=== PATIENT | female | born 1990 | race Caucasian/White ===

== ENCOUNTER 2020-08-20 07:58 | Inpatient (IN) | payer SELFPAY ==
[2020-08-20] MEDS ORDERED: EPINEPHrine VIAL 5 MG in IV NORMAL SALINE 250ML 250 ML IV ONE (08:30)
[2020-08-20] MEDS ORDERED: IV NORMAL SALINE 1000ML BAG 1,000 ML IV ONE ×3 (08:30→11:00)
[2020-08-20] MEDS ORDERED: SODIUM BICARB ADULT 8.4% 50 MEQ/50 ML DISP.SYRIN. IV ONE ×2 (08:45→10:45)
[2020-08-20] MEDS ORDERED: CALCIUM CHLORIDE 1,000 MG/10 ML DISP.SYRIN IVP ONE (08:45)
[2020-08-20] MEDS ORDERED: ATROPINE 0.5 MG/5 ML DISP.SYRINGE. IV ONE (08:45)
[2020-08-20] MEDS ORDERED: EPINEPHrine SYRINGE 1 MG/10 ML SYRINGE IV ONE (08:45)
[2020-08-20 08:50] LABS: PO2 ABG 123 mmHg (85-108); SAT O2 ABG 87 % (92-99)
[2020-08-20] MEDS ORDERED: NOREPINEPHRINE VIAL 8 MG in IV DEXTROSE 5% 250 ML IV ONE (09:00)
[2020-08-20] MEDS ORDERED: AMIODARONE 150 MG in IV DEXTROSE 5% 100ML 100 ML IV ONE (09:00)
[2020-08-20 09:08] LABS: FIO2 ABG 100 VENT
--- NOTE | 2020-08-20 09:12 | RAD ---
AP chest. HISTORY: Cardiopulmonary arrest, intubated AP view was taken of the chest. Endotracheal tube is in good position. NG tube extends into the stoma ch. There is no pneumothorax or pleural effusion. Heart is normal in size. Mediastinum is not widened . There are no acute infiltrates. IMPRESSION: 1. Endotracheal tube appears in good position. 2. NG tube in the stomach. 3. No acute infiltrates. Electronically signed by: Dakota Marroquin MD (08/20/2020 8:52 AM) [facility]
[2020-08-20] MEDS ORDERED: AMIODARONE 150 MG/3 ML VIAL IVP ONE (09:15)
--- NOTE | 2020-08-20 09:15 | PHYS DOC ---
Past Medical History Past Medical History Unable to obtain secondary to cardiopulmonary arrest Past Surgical History Unable to obtain secondary to cardiopulmonary arrest Additional Information: ETOH use- per EMS Drug Use: Cocaine (?- per EMS) Social History Unable to obtain secondary to cardiopulmonary arrest General Adult EDM: Chief Complaint: CPR/FULL ARREST HPI: HPI: Patient is a 29 year old female presents via EMS and cardiopulmonary arrest. Patient apparently was last seen normal at 0613. EMS was called at 0713 for unresponsive female. EMS reports no pulse upon their arrival. ACLS initiated. EMS reports initial rhythm in PEA. Mechanical compressions, I gel airway, 3 rounds of epinephrine, and 2 mg of Narcan were provided in route. EMS reports patient rhythm had changed to asystole during transport. EMS reports concern for alcohol and possibly cocaine may have been contributory. Police were holding patient's on scene and performing drug and homicide screening. History of present illness limited secondary to cardiopulmonary arrest. Review of Systems: Review of Systems: Review of systems limited secondary to cardiopulmonary arrest. Current Medications: Current Medications Medications (Trade) Dose Ordered Sig/Taylor Start Time Stop Time Status Last Admin Dose Admin Amiodarone HCl 150 mg/Dextrose 103 ml @ 618 mls/hr 1X ONCE 08/20/20 09:00 08/20/20 09:09 Atropine Sulfate (ATROPINE 0.5mg SYRINGE) 1.5 mg 1X ONCE 08/20/20 08:45 08/20/20 08:49 DC Calcium Chloride (Calcium Chloride) 330 mg 1X ONCE 08/20/20 08:45 08/20/20 08:54 DC Epinephrine HCl (EPINEPHrine SYRINGE) 7 mg 1X ONCE 08/20/20 08:45 08/20/20 08:49 DC Epinephrine HCl 5 mg/Sodium Chloride 255 ml @ 0 mls/hr ONCE ONCE 08/20/20 08:30 08/20/20 08:31 DC Norepinephrine Bitartrate 8 mg/ Dextrose 258 ml @ 16.448 mls/ hr 1X ONCE 08/20/20 09:00 08/21/20 00:41 Sodium Bicarbonate (Sodium Bicarb Adult 8.4% Syr) 100 meq 1X ONCE 08/20/20 08:45 08/20/20 08:49 DC Sodium Chloride 1,000 ml @ 1,000 mls/hr 1X ONCE 08/20/20 09:00 08/20/20 09:59 Allergies: Allergies: Allergies Coded Allergies Type Severity Reaction Last Updated Verified Unable to Assess 08/20/20 No Physical Exam: PE: Constitutional: Well developed, female, unresponsive HENT: Normocephalic, atraumatic, I-gel airway in place Eyes: Bilateral pupils dilated and nonresponsive, right artificial eyelash, conjunctiva normal, no discharge Neck: Supple, no crepitance Lungs & Thorax: Artificial respirations with [id number], equal chest rise and fall, coarse breath sounds, chest wall ecchymosis noted at site of mechanical compression Abdomen: Soft, mild distention Skin: Warm, dry, no erythema, small 0.5 cm avulsion noted to right breast near the superior areola-no active bleeding Extremities: No deformity, no edema Neurologic: GCS 3, unresponsive Current Patient Data: Labs: Laboratory Tests Test 08/20/20 08:06 Glucose (Fingerstick) 188 mg/dL (70-99) H Vital Signs: Vital Signs Date Time Temp Pulse Resp B/P (MAP) Pulse Ox O2 Delivery O2 Flow Rate FiO2 08/20/20 08:47 90 Ventilator EKG: EKG: @0801 VTach at 146bpm @0805 NSR at 66bpm, QRS 112ms, QT/QTc 376/396ms, ST depression II-aVF and V3, possible elevation in V1-V2 @0823 Bradycardiac irregular rhythm at 43bpm, t wave inversion III, QRS 130ms, QT/QTc 428/366ms @1136 Wide complex at 75bpm, new LBBB, QRS 230ms, QT/QTc 300/508ms Radiology/Procedures: Radiology/Procedures: PROCEDURE: CHEST AP ONLY AP chest. HISTORY: Cardiopulmonary arrest, intubated AP view was taken of the chest. Endotracheal tube is in good position. NG tube extends into the stomach. There is no pneumothorax or pleural effusion. Heart is normal in size. Mediastinum is not widened. There are no acute infiltrates. IMPRESSION: 1. Endotracheal tube appears in good position. 2. NG tube in the stomach. 3. No acute infiltrates. Electronically signed by: Dakota Marroquin MD (08/20/2020 8:52 AM) [facility] PROCEDURE: CT HEAD WO CONTRAST CT brain without contrast. HISTORY: Cardiopulmonary arrest CT scan the brain was done without contrast. There is no intracranial hemorrhage. Ventricles are normal in size. There is loss of the normal esteban- white matter differentiation which would suggest developing diffuse edema. There is no shift of the midline. Anoxic brain injury is likely. IMPRESSION: 1. Loss of normal esteban-white matter differentiation suggesting diffuse brain edema. PQRS Compliance Statement: One or more of the following individualized dose reduction techniques were utilized for this examination: 1. Automated exposure control 2. Adjustment of the mA and/or kV according to patient size 3. Use of iterative reconstruction technique Electronically signed by: Dakota Marroquin MD (08/20/2020 9:41 AM) [facility] PROCEDURE: CT ANGIOGRAPHY CHEST CT chest with contrast. HISTORY: Cardiopulmonary arrest CT arteriogram of the chest was done using 100 mL Omnipaque intravenous contrast. Sagittal and coronal MIP images were reconstructed. Endotracheal tube extends just into the left mainstem bronchus. NG tube extends into the stomach. Diffuse decreased density in the liver. There is atelectasis in both lower lobes. There is respiratory motion artifact. There is no large or central pulmonary embolus. There is no pneumothorax. Thoracic aorta is unremarkable without aneurysm or dissection. IMPRESSION: 1. Negative for a pulmonary embolus. 2. Bilateral lower lobe atelectasis. 3. No pneumothorax. PQRS Compliance Statement: One or more of the following individualized dose reduction techniques were utilized for this examination: 1. Automated exposure control 2. Adjustment of the mA and/or kV according to patient size 3. Use of iterative reconstruction technique Electronically signed by: Dakota Marroquin MD (08/20/2020 9:49 AM) [facility] PROCEDURE: CHEST AP ONLY AP chest. HISTORY: Endotracheal tube adjustment AP view was taken of the chest. There is a new right jugular central line to the superior vena cava. Endotracheal tube is 1 cm above the chris. The atelectasis noted on the CT there is degenerative improved somewhat. No other infiltrates are noted. NG tube extends into the stomach. IMPRESSION: 1. Endotracheal tube 1 cm above the chris. 2. Central line in good position. 3. NG tube in the stomach. 4. Improving basilar atelectasis. Electronically signed by: Dakota Marroquin MD (08/20/2020 10:45 AM) [facility] Course & Med Decision Making: Course & Med Decision Making Pertinent Labs and Imaging studies reviewed. (See chart for details) Patient presents in cardiopulmonary arrest via EMS with last known well at 0613. EMS reports concern for alcohol and/or cocaine. Police were on scene. EMS reports initial rhythm at PEA which subsequently converted to asystole despite ACLS protocol. Upon arrival ACLS continued. Blood glucose 214. Eye gel replaced with ET tube via glide scope placement. EMS reports giving 3 rounds of epinephrine and 2 mg of Narcan in route without improvement. Additional total 7 rounds of epinephrine, 3 rounds of atropine for bradycardic rhythms with pulse, 2 A of bicarb, 1 amp of calcium chloride, and 150 mg of amiodarone given during code. Additionally 3 episodes of V. tach noted with defibrillation at 200 J. Patient would initially respond and then immediately would have no rhythm. Stable spontaneous circulation was finally achieved at 0834. Significant concern for anoxic event given last known well greater than [address] head confirmed signs of anoxic injury. Chest x-ray initially showed good position of ET tube. CTA chest without signs of PE however noted low riding ET tube with recommendation for retraction. ET tube retracted 2 cm and marked 22 cm at the teeth. Patient required placement of epinephrine drip as well as Levophed for heart rate and blood pressure management respectively. A central line placed to right IJ via ultrasound guidance. Repeated chest x-ray confirmed good positioning of central line as well as retracted ET tube. Labs obtained and posted to chart. WBC and bandemia noted. INR 6.5. AST/ALT significantly elevated. ABG with significant metabolic acidosis. Discussed case with Dr. Easton (pulmonology/critical care) regarding who came and evaluated patient in the emergency department. Further rounds of bicarb provided. Patient requiring admission for further evaluation and treatment. Discussed with Dr. Mireles (hospitalist) who is in agreement with ICU admission. At this point no family members available. Police apparently still retained patient's . Patient held in ED awaiting ICU bed availability. During ED hold awaiting ICU bed: Patient with repeated sustained runs of pulseless Vtach requiring defibrillation. ACLS continued. Repeated EKG after return of spontaneous circulation with signs of new onset LBBB. Concern for significant diffuse end organ damage. Patient subsequently with bleeding around right IJ, rectally, and and orogastric tubing. Patient continuing progression of full organ failure. Spouse and step daughter presented to ED. Apprised family of patient's critical condition and concern for organ failure and specifically significant anoxic injury of brain. Patient subsequently with loss of pulse. Decision to terminate further resuscitative efforts after confirmation via bedside ultrasound without cardiac activity. Time of called at 1221. Family at bedside. Dr. Mireles (hospitalist) made aware of patient's change in condition and ICU bed no longer required. Police had notified RN regarding upon patient passing they would request android ios developer to be notified. Lead Java [email or web address] Developer notified. Lines and devices left in place. Dragon Disclaimer: Dragon Disclaimer: This electronic medical record was generated, in whole or in part, using a voice recognition dictation system. Departure Departure Impression: Primary Impression: Cardiopulmonary arrest Additional Impressions: Cerebral edema due to anoxia Elevated INR (international normalized ratio) Transaminasemia Metabolic acidosis Lactic acidosis Elevated troponin Disposition: 20 Admitting Physician: DORY Lopez) Condition: (Time of - 1221) Central Line Central Line : Central Line Lumen: triple Central Line Procedure: sterile drapes applied, sterile dressing applied Central Line Postion: internal jugular (R) Complications: none Central Line Post Position: sutured, good blood return, position confirmed w/ CXR Progress Emergent consent utilized. Time out performed. Hand hygiene utilized. Sterile attire donned. Right neck cleaned with ChloraPrep. Sterile drape applied. Bedside ultrasound utilized for visualization of right interval jugular with successful placement of triple lumen catheter over guidewire via Seldinger technique. Catheter sutured in place at 14cm at skin and sterile op site applied. XR obtained which confirmed good position without complication. Patient tolerated procedure well and without difficulty. Intubation Intubation : Time of Intubation: 07:51 Intubation Method: orotracheal Tube Size (cm): 8.0 Breath Sounds after Intubation: equal Intubation Complications: no complications Post Intubation Xray: Yes Progress/Xray Impression: Good position of ETT Progress Emergent consent utilized. Time out performed. Hand hygiene utilized. Patient with with cardiopulmonary arrest requiring definitive airway management. I-gel placed by EMS prehospital was successfully removed. Glidescope utilized with suctioning of some emesis noted in hypo-pharynx and successful placement of 8.0 cuffed ETT which was marked 24cm at teeth. Positive color change on end tidal CO2 device with fogging of tube. CXR with good positioning. COVID-19 Assessment: COVID-19 Patient Risks: Age 65 or older: No Sign of co-morbidity: No Exp to person + for COVID: No Exp to PUI: No Travel from affected area: No Lower respiratory symptoms: Yes Fever: No Other: Yes PPE Use: Full PPE with N95 mask or PAPR: Yes Critical Care Time Critical care time was 90 minutes which includes time at bedside, spent in discussion of patient's care with specialists and/or family members, with interpretation of laboratory and/or radiological studies and is exclusive of procedures. JASON GASTON DO Aug 20, 2020 09:15
[2020-08-20] MEDS ORDERED: EPINEPHrine VIAL 10 MG in IV NORMAL SALINE 250ML 250 ML IV ONE (09:30)
[2020-08-20] MEDS ORDERED: CONTRAST GIVEN. MC PRN (09:45)
[2020-08-20] MEDS ORDERED: IOHEXOL 350 MG/ML 100 ML VIAL. IV ONE (09:45)
--- NOTE | 2020-08-20 09:58 | RAD ---
CT brain without contrast. HISTORY: Cardiopulmonary arrest CT scan the brain was done without contrast. There is no intracranial hemorrhage. Ventricles are norm al in size. There is loss of the normal esteban-white matter differentiation which would suggest develop ing diffuse edema. There is no shift of the midline. Anoxic brain injury is likely. IMPRESSION: 1. Loss of normal esteban-white matter differentiation suggesting diffuse brain edema. PQRS Compliance Statement: One or more of the following individualized dose reduction techniques were utilized for this examinat ion: 1. Automated exposure control 2. Adjustment of the mA and/or kV according to patient size 3. Use of iterative reconstruction technique Electronically signed by: Dakota Marroquin MD (08/20/2020 9:41 AM) [facility]
--- NOTE | 2020-08-20 09:59 | RAD ---
CT chest with contrast. HISTORY: Cardiopulmonary arrest CT arteriogram of the chest was done using 100 mL Omnipaque intravenous contrast. Sagittal and stoddard l MIP images were reconstructed. Endotracheal tube extends just into the left mainstem bronchus. NG t ube extends into the stomach. Diffuse decreased density in the liver. There is atelectasis in both lo wer lobes. There is respiratory motion artifact. There is no large or central pulmonary embolus. Ther e is no pneumothorax. Thoracic aorta is unremarkable without aneurysm or dissection. IMPRESSION: 1. Negative for a pulmonary embolus. 2. Bilateral lower lobe atelectasis. 3. No pneumothorax. PQRS Compliance Statement: One or more of the following individualized dose reduction techniques were utilized for this examinat ion: 1. Automated exposure control 2. Adjustment of the mA and/or kV according to patient size 3. Use of iterative reconstruction technique Electronically signed by: Dakota Marroquin MD (08/20/2020 9:49 AM) [facility]
[2020-08-20 10:21] LABS: BASE EXCESS ABG -36 mmol/L (-3-3); HCO3 ABG 3 mmol/L (21-28); PCO2 ABG 34 mmHg (35-46); PO2 ABG 183 mmHg (85-108); SAT O2 ABG 96 % (92-99)
[2020-08-20 10:23] LABS: FIO2 ABG 100 VENT
[2020-08-20 10:40] LABS: BASO # 0.1 x10^3/uL (0.0-0.2); BASO % 1 % (0-3); EOS % 0 % (0-3); HEMATOCRIT 33.8 % (36.0-47.0); HEMOGLOBIN 9.8 g/dL (12.0-15.5); LYMPH # 7.1 x10^3/uL (1.0-4.8); LYMPH % 38 % (24-48); MEAN CORPUSCULAR HEMOGLOBIN 32 pg (25-35); MEAN CORPUSCULAR HGB CONC 29 g/dL (31-37); MEAN CORPUSCULAR VOLUME 110 fL (79-100); MONO # 0.6 x10^3/uL (0.0-1.1); MONO % 3 % (0-9); NEUT # 10.6 x10^3/uL (1.8-7.7); NEUT % 58 % (31-73); PLATELET COUNT 155 x10^3/uL (140-400); RED BLOOD COUNT 3.06 x10^6/uL (3.50-5.40); RED CELL DISTRIBUTION WIDTH 14.3 % (11.5-14.5); WHITE BLOOD COUNT 18.4 x10^3/uL (4.0-11.0)
[2020-08-20 10:44] LABS: PROTHROMBIN TIME PATIENT 61.1 SEC (11.7-14.0)
[2020-08-20 10:45] LABS: ALBUMIN/GLOBULIN RATIO 0.8 (1.0-1.7); CALCIUM 7.5 mg/dL (8.5-10.1); CREATININE 1.4 mg/dL (0.6-1.0); GFR 44.2; MAGNESIUM 3.3 mg/dL (1.8-2.4); POTASSIUM 4.7 mmol/L (3.5-5.1); TOTAL BILIRUBIN 0.3 mg/dL (0.2-1.0); TOTAL PROTEIN 4.5 g/dL (6.4-8.2)
[2020-08-20] MEDS ORDERED: SODIUM BICARBONATE VIAL 150 MEQ in IV DEXTROSE 5% 1,000 ML IV SCH (10:45)
[2020-08-20] MEDS ORDERED: ASPIRIN RECTAL 300 MG SUPP. PR ONE (10:45)
--- NOTE | 2020-08-20 10:52 | RAD ---
AP chest. HISTORY: Endotracheal tube adjustment AP view was taken of the chest. There is a new right jugular central line to the superior vena cava. Endotracheal tube is 1 cm above the chris. The atelectasis noted on the CT there is degenerative imp roved somewhat. No other infiltrates are noted. NG tube extends into the stomach. IMPRESSION: 1. Endotracheal tube 1 cm above the chris. 2. Central line in good position. 3. NG tube in the stomach. 4. Improving basilar atelectasis. Electronically signed by: Dakota Marroquin MD (08/20/2020 10:45 AM) [facility]
[2020-08-20] MEDS ORDERED: 0.9 % SODIUM CHLORIDE 10 ML DISP.SYRIN. IV PRN (11:15)
--- NOTE | 2020-08-20 11:30 | PDOC1 ---
History and Physical Date of Admission Date of Admission DATE: 08/20/20 TIME: 11:04 Identification/Chief Complaint Chief Complaint Cardiopulmonary arrest Source Source: Chart review History of Present Illness History of Present Illness This is a 29-year-old female who presents to the ER by EMS after being found unresponsive and pulseless around 0715 this morning. Last known well time was around 0615. Patient was brought to the ER and was coded for roughly 2 hours, in and out of V-tach and PEA. Sustainable rhythm was obtained and patient was intubated, started on epinephrine and Levophed. No family was present at bedside, but there was report that was detained by police. After given towards the ER about some history of cocaine abuse, but at this time only toxicology report shows ethyl alcohol level 75. Patient will be admitted to the ICU for further management. Past Medical History Past Medical History Unknown at this time secondary to clinical condition Past Surgical History Past Surgical History Unable to obtain at this time secondary to clinical condition Family History Family History Unable to obtain at this time secondary to clinical condition Current Problem List Problem List Problems Medical Problems: (1) Cardiopulmonary arrest with successful resuscitation Status: Acute (2) Cerebral edema due to anoxia Status: Acute Current Medications Current Medications Current Medications Epinephrine HCl 5 mg/Sodium Chloride 255 ml @ 0 mls/hr ONCE ONCE IV Last administered on 08/20/20at 08:30; Start 08/20/20 at 08:30; Stop 08/20/20 at 08:31; Status DC Sodium Chloride 1,000 ml @ 1,000 mls/hr 1X ONCE IV Last administered on 08/20/20at 08:55; Start 08/20/20 at 08:30; Stop 08/20/20 at 09:29; Status DC Epinephrine HCl (EPINEPHrine SYRINGE) 7 mg 1X ONCE IV Last administered on 08/20/20at 07:50; Start 08/20/20 at 08:45; Stop 08/20/20 at 08:49; Status DC Sodium Bicarbonate (Sodium Bicarb Adult 8.4% Syr) 100 meq 1X ONCE IV Last administered on 08/20/20at 07:51; Start 08/20/20 at 08:45; Stop 08/20/20 at 08:49; Status DC Atropine Sulfate (ATROPINE 0.5mg SYRINGE) 1.5 mg 1X ONCE IV Last administered on 08/20/20at 07:53; Start 08/20/20 at 08:45; Stop 08/20/20 at 08:49; Status DC Calcium Chloride (Calcium Chloride) 330 mg 1X ONCE IVP Last administered on 08/20/20at 07:56; Start 08/20/20 at 08:45; Stop 08/20/20 at 08:54; Status DC Amiodarone HCl 150 mg/Dextrose 103 ml @ 618 mls/hr 1X ONCE IV ; Start 08/20/20 at 09:00; Stop 08/20/20 at 09:09; Status DC Norepinephrine Bitartrate 8 mg/ Dextrose 258 ml @ 16.448 mls/ hr 1X ONCE IV Last administered on 08/20/20at 09:02; Start 08/20/20 at 09:00; Stop 08/21/20 at 00:41 Sodium Chloride 1,000 ml @ 1,000 mls/hr 1X ONCE IV Last administered on 08/20/20at 07:51; Start 08/20/20 at 09:00; Stop 08/20/20 at 09:59; Status DC Amiodarone HCl (Cordarone) 150 mg 1X ONCE IVP ; Start 08/20/20 at 09:15; Stop 08/20/20 at 09:16; Status DC Epinephrine HCl 10 mg/Sodium Chloride 260 ml @ 0 mls/hr ONCE ONCE IV Last admi nistered on 08/20/20at 10:25; Start 08/20/20 at 09:30; Stop 08/20/20 at 09:31; Status DC Iohexol (Omnipaque 350 Mg/ml) 100 ml 1X ONCE IV Last administered on 08/20/20at 09:42; Start 08/20/20 at 09:45; Stop 08/20/20 at 09:46; Status DC Info (CONTRAST GIVEN -- Rx MONITORING) 1 each PRN DAILY PRN MC SEE COMMENTS; Start 08/20/20 at 09:45; Stop 08/22/20 at 09:44 Sodium Bicarbonate 150 meq/Dextrose 1,150 ml @ 125 mls/hr Q9H12M IV Last administered on 08/20/20at 10:43; Start 08/20/20 at 10:45 Sodium Bicarbonate (Sodium Bicarb Adult 8.4% Syr) 100 meq 1X ONCE IV Last administered on 08/20/20at 10:42; Start 08/20/20 at 10:45; Stop 08/20/20 at 10:46; Status DC Aspirin (Aspirin Rectal Supp) 300 mg 1X ONCE IA Last administered on 08/20/20at 10:45; Start 08/20/20 at 10:45; Stop 08/20/20 at 10:46; Status DC Sodium Chloride 1,000 ml @ 125 mls/hr 1X ONCE IV Last administered on 08/20/20at 10:53; Start 08/20/20 at 11:00; Stop 08/20/20 at 18:59 Allergies Allergies: Coded Allergies: Unable to Assess (Unverified , 08/20/20) ROS Review of System Unable to obtain at this time secondary to clinical condition Physical Exam Physical Exam General: Intubated on 2 vasopressors HEENT: Pupils fixed, dilated, nonreactive to light Lungs: Coarse breath sounds, Normal air movement Heart: Organized rhythm, tachycardic, no murmurs Cardiovascular: S1, S2 Abdomen: Soft, nondistended Extremities: No clubbing, No cyanosis Skin: Bruising to anterior chest wall, lacerations to bilateral areola Neuro: Unresponsive Psych/Mental Status: Unresponsive Vitals Vitals Vital Signs Date Time Temp Pulse Resp B/P (MAP) Pulse Ox O2 Delivery O2 Flow Rate FiO2 08/20/20 10:20 90 Ventilator 08/20/20 09:43 102 90/43 (59) 08/20/20 09:32 15.0 Labs Labs Laboratory Tests Test 08/20/20 08:06 08/20/20 09:00 08/20/20 09:55 08/20/20 10:21 Glucose (Fingerstick) 188 mg/dL (70-99) O2 Saturation 87 % (92-99) 96 % (92-99) Arterial Blood pO2 at Patient Temp 123 mmHg (85-108) 183 mmHg (85-108) FiO2 100 vent 100 vent Prothrombin Time 61.1 SEC (11.7-14.0) Prothromb Time International Ratio 6.8 (0.8-1.1) Activated Partial Thromboplast Time 145 SEC (24-38) Sodium Level 151 mmol/L (136-145) Potassium Level 4.7 mmol/L (3.5-5.1) Chloride Level 117 mmol/L (98-107) Carbon Dioxide Level 7 mmol/L (21-32) Anion Gap 27 (6-14) Blood Urea Nitrogen 11 mg/dL (7-20) Creatinine 1.4 mg/dL (0.6-1.0) Estimated GFR (Cockcroft-Gault) 44.2 BUN/Creatinine Ratio 8 (6-20) Glucose Level 222 mg/dL (70-99) Calcium Level 7.5 mg/dL (8.5-10.1) Magnesium Level 3.3 mg/dL (1.8-2.4) Total Bilirubin 0.3 mg/dL (0.2-1.0) Alkaline Phosphatase 100 U/L (46-116) Troponin I Quantitative 0.261 ng/mL (0.000-0.055) Total Protein 4.5 g/dL (6.4-8.2) Albumin 2.0 g/dL (3.4-5.0) Albumin/Globulin Ratio 0.8 (1.0-1.7) Lipase 465 U/L (73-393) Ethyl Alcohol Level 75 mg/dL (0-10) Arterial Blood pH < 6.72 (7.35-7.45) Arterial Blood pCO2 at Patient Temp 34 mmHg (35-46) Arterial Blood HCO3 3 mmol/L (21-28) Arterial Blood Base Excess -36 mmol/L (-3-3) Laboratory Tests Test 08/20/20 08:06 08/20/20 09:00 08/20/20 09:55 08/20/20 10:21 Glucose (Fingerstick) 188 mg/dL (70-99) O2 Saturation 87 % (92-99) 96 % (92-99) Arterial Blood pO2 at Patient Temp 123 mmHg (85-108) 183 mmHg (85-108) FiO2 100 vent 100 vent Prothrombin Time 61.1 SEC (11.7-14.0) Prothromb Time International Ratio 6.8 (0.8-1.1) Activated Partial Thromboplast Time 145 SEC (24-38) Sodium Level 151 mmol/L (136-145) Potassium Level 4.7 mmol/L (3.5-5.1) Chloride Level 117 mmol/L (98-107) Carbon Dioxide Level 7 mmol/L (21-32) Anion Gap 27 (6-14) Blood Urea Nitrogen 11 mg/dL (7-20) Creatinine 1.4 mg/dL (0.6-1.0) Estimated GFR (Cockcroft-Gault) 44.2 BUN/Creatinine Ratio 8 (6-20) Glucose Level 222 mg/dL (70-99) Calcium Level 7.5 mg/dL (8.5-10.1) Magnesium Level 3.3 mg/dL (1.8-2.4) Total Bilirubin 0.3 mg/dL (0.2-1.0) Alkaline Phosphatase 100 U/L (46-116) Troponin I Quantitative 0.261 ng/mL (0.000-0.055) Total Protein 4.5 g/dL (6.4-8.2) Albumin 2.0 g/dL (3.4-5.0) Albumin/Globulin Ratio 0.8 (1.0-1.7) Lipase 465 U/L (73-393) Ethyl Alcohol Level 75 mg/dL (0-10) Arterial Blood pH < 6.72 (7.35-7.45) Arterial Blood pCO2 at Patient Temp 34 mmHg (35-46) Arterial Blood HCO3 3 mmol/L (21-28) Arterial Blood Base Excess -36 mmol/L (-3-3) Images Images CHEST AP ONLY AP chest. HISTORY: Cardiopulmonary arrest, intubated AP view was taken of the chest. Endotracheal tube is in good position. NG tube extends into the stomach. There is no pneumothorax or pleural effusion. Heart is normal in size. Mediastinum is not widened. There are no acute infiltrates. IMPRESSION: 1. Endotracheal tube appears in good position. 2. NG tube in the stomach. 3. No acute infiltrates. CT ANGIOGRAPHY CHEST CT chest with contrast. HISTORY: Cardiopulmonary arrest CT arteriogram of the chest was done using 100 mL Omnipaque intravenous contrast. Sagittal and coronal MIP images were reconstructed. Endotracheal tube extends just into the left mainstem bronchus. NG tube extends into the stomach. Diffuse decreased density in the liver. There is atelectasis in both lower lobes. There is respiratory motion artifact. There is no large or central pulmonary embolus. There is no pneumothorax. Thoracic aorta is unremarkable without aneurysm or dissection. IMPRESSION: 1. Negative for a pulmonary embolus. 2. Bilateral lower lobe atelectasis. 3. No pneumothorax. CT HEAD WO CONTRAST CT brain without contrast. HISTORY: Cardiopulmonary arrest CT scan the brain was done without contrast. There is no intracranial hemorrhage. Ventricles are normal in size. There is loss of the normal esteban- white matter differentiation which would suggest developing diffuse edema. There is no shift of the midline. Anoxic brain injury is likely. IMPRESSION: 1. Loss of normal esteban-white matter differentiation suggesting diffuse brain edema. VTE Prophylaxis Ordered VTE Prophylaxis Devices: Yes VTE Pharmacological Prophylaxi: No Assessment/Plan Assessment/Plan Cardiopulmonary arrest Anoxic encephalopathy Severe metabolic acidosis Plan: Patient was started on Levophed and epinephrine and ER. Due to prolonged CPR for 2 hours and 2 vasopressors, not a candidate for therapeutic hypothermia targeted temperature management. Patient appears clinically brain ; fixed dilated pupils, no gag reflex. CT head without contrast obtained in ER shows loss of normal esteban-white matter differentiation suggesting diffuse brain edema was reportedly arrested on scene; will attempt contact some family Very poor prognosis; I believe she is an organ donor. FEN - NPO PPX - SCDs FULL CODE Dispo - inpatient for above Justifications for Admission Other Justification SEEMA STEELE MD Aug 20, 2020 11:30
--- NOTE | 2020-08-20 11:34 | CONS ---
DATE OF CONSULTATION: 08/20/2020 PULMONARY CONSULTATION ATTENDING PHYSICIAN: Dr. Sourav Mireles. REASON FOR CONSULTATION: Respiratory failure, cardiac arrest. HISTORY OF PRESENT ILLNESS: The patient is a 29-year-old. She was brought into [place] [facility] after she was found unresponsive. The patient apparently had cardiac arrest. She was noted to have V-tach and then asystole on and off. She required CPR in the Emergency Room for almost 2 hours. The patient underwent imaging study. Her CT head showed diffuse cerebral edema. There was loss of normal esteban white matter. The patient underwent CT angiogram and there was no central pulmonary emboli. There was evidence of basal lower lobe atelectasis. No pneumothorax. She had return of spontaneous circulation; however, she is requiring 2 vasopressors including maximum doses of epinephrine and high doses of Levophed. Her pupils are fixed and dilated. She has no gag reflex, but she has spontaneous respirations. Her arterial blood gases were highly abnormal. The pH was less than 6.72, pCO2 of 34 and a pO2 of 183 on 100% FiO2. Her bicarbonate was 7 on the chemistries. The patient is currently on assist control with rate of 30, tidal volume of 450 and on 2 vasopressors. I have been asked to see her for further evaluation. PAST MEDICAL HISTORY: Unknown, but appears to be substance abuse. Reportedly, has history of cocaine use and she was noted to have a high alcohol level. PAST SURGICAL HISTORY: Unknown. ALLERGIES: Not available. MEDICATIONS: Given in the ER were reviewed. PHYSICAL EXAMINATION: VITAL SIGNS: Reviewed. Systolic blood pressure 90 on 2 vasopressors. Pupils fixed and dilated. Pulse ox is 100%, currently on 100% FiO2. NECK: Supple. LUNGS: With diminished breath sounds bilaterally. CARDIOVASCULAR: With tachycardia. ABDOMEN: Soft. EXTREMITIES: With no pitting edema. LABORATORY DATA: Reviewed. BUN is 11, creatinine 1.4. Bicarbonate was 7. Troponin 0.261. INR is 6.8. ABGs were discussed in my history of present illness. IMPRESSION: 1. Acute respiratory failure secondary to cardiac arrest, substance abuse, toxic encephalopathy 2. Abnormal CT head with diffuse cerebral edema. Not brain / still has spont Resp, but no gag, pupils fixed and dilated 3. Status post CPR for 2 hours with intermittent return of spontaneous circulation. Currently, she is in shock, on 2 pressors. Prognosis is extremely grim. 3. Severe metabolic acidosis. 4. Acute kidney injury. 5. Severe coagulopathy. INR is 6.8. 6. No evidence of pulmonary embolism. 7. Cocaine overdose per history RECOMMENDATIONS: 1. Discussed with ER physician, RN and RT. Prognosis is extremely grim from very prolonged CPR. Not a candidate for hypothermia ( severe shock, 2 hrs of CPR) 2. Continue present assist control mode. 3. I have given 2 amps of IV bicarbonate and placed her on bicarbonate drip. 4. Neurology consultation. She still has few spontaneous breaths. Otherwise, she has no gag reflex and pupils are fixed and dilated. 5. I would recommend no further CPR in case of cardiac arrest. This would be futile care. Await Neuro rec. not available (under arrest) 6. Consult Renal. She likely will end up on dialysis if she survives. 7. Follow ABGs and make necessary adjustments. 8. Continue present pressor support. 9. We will follow along with you. Discussed with Dr. Mireles/ ER Physician Critical care time 40 minutes. RADHA LOUISE MD DR: YULIA/shannon JOB#: [id number] / [id number] GILBERTO
--- NOTE | 2020-08-20 11:48 | EKG ---
[facility] [address] [place] [address] Test Date: 2020-08-20 Test Time: 11:36:22 Pat Name: FLORESITA PASCUAL Department: Room: Gender: F Intellectual Property Counsel: : 1990 Requested By: JASON GASTON Order Number: [id number] Reading MD: Measurements Intervals [place] Rate: 168 P: CT: QRS: 63 QRSD: 230 T: 23 QT: 300 QTc: 508 Interpretive Statements IRREGULAR RHYTHM, NO P-WAVE FOUND RIGHT BUNDLE BRANCH BLOCK ABNORMAL ECG RI6.02 No previous ECG available for comparison
[2020-08-20 11:54] VITALS: BP_DIAS 47
[2020-08-20 11:54] LABS: % BANDS 15 % (0-9); % LYMPHS 40 % (24-48); % METAS 2 % (0-0); % MONOS 1 % (0-10); % SEGS 42 % (35-66); NUCLEATED RBC 1
[2020-08-20 11:55] LABS: PLT ESTIMATE ADEQUATE (ADEQUATE)
--- NOTE | 2020-08-20 11:55 | EKG ---
[facility] [address] [place] [address] Test Date: 2020-08-20 Test Time: 08:23:38 Pat Name: FLORESITA PASCUAL Department: Room: Gender: F Digital Producer: : 1990 Requested By: JASON GASTON Order Number: [id number] Reading MD: Measurements Intervals [place] Rate: 43 P: [place]: QRS: 122 QRSD: 130 T: -3 QT: 428 QTc: 366 Interpretive Statements IRREGULAR RHYTHM, NO P-WAVE FOUND ABNORMAL RIGHT AXIS DEVIATION NON SPECIFIC INTRAVENTRICULAR BLOCK CONSIDER RIGHT VENTRICULAR HYPERTROPHY ABNORMAL ECG RI6.02 Compared to ECG 08/20/2020 08:05:27 Sinus rhythm no longer present First degree AV block no longer present ST (T wave) deviation no longer present
[2020-08-20] MEDS ORDERED: SODIUM BICARB ADULT 8.4% 50 MEQ/50 ML DISP.SYRIN. ONE (12:00)
[2020-08-20] MEDS ORDERED: DOPamine 400MG/250ML PREMIX 400 MG/250 ML BAG IV ONE (12:00)
[2020-08-20] MEDS ORDERED: EPIDURAL SYRINGE. EPID ONE (12:00)
[2020-08-20] MEDS ORDERED: ATROPINE 0.5 MG/5 ML DISP.SYRINGE. ONE (12:00)
[2020-08-20] MEDS ORDERED: AMIODARONE 150 MG/3 ML VIAL ONE (12:00)
[2020-08-20] MEDS ORDERED: CALCIUM CHLORIDE 1,000 MG/10 ML DISP.SYRIN ONE (12:00)
[2020-08-20] MEDS ORDERED: MAGNESIUM SULFATE PREMIX 1 GM/100 ML BAG. IV ONE (12:00)
[2020-08-20 12:10] VITALS: BP_SYST 74
--- NOTE | 2020-08-20 12:38 | PDOC3 ---
Discharge Summary Visit Information Date of Admission: Aug 20, 2020 Date of Discharge: Aug 20, 2020 Final Diagnosis Problems Medical Problems: (1) Cardiopulmonary arrest with successful resuscitation Status: Acute (2) Cerebral edema due to anoxia Status: Acute Brief Hospital Course Allergies Allergies Coded Allergies Type Severity Reaction Last Updated Verified Unable to Assess 08/20/20 No Vital Signs Vital Signs Date Time Temp Pulse Resp B/P (MAP) Pulse Ox O2 Delivery O2 Flow Rate FiO2 08/20/20 12:10 74/ 08/20/20 12:00 Ventilator 08/20/20 11:54 88 96 08/20/20 09:32 15.0 Lab Results Laboratory Tests Test 08/20/20 08:06 08/20/20 09:00 08/20/20 09:55 08/20/20 10:21 Glucose (Fingerstick) 188 mg/dL (70-99) O2 Saturation 87 % (92-99) 96 % (92-99) Arterial Blood pO2 at Patient Temp 123 mmHg (85-108) 183 mmHg (85-108) FiO2 100 vent 100 vent White Blood Count 18.4 x10^3/uL (4.0-11.0) Red Blood Count 3.06 x10^6/uL (3.50-5.40) Hemoglobin 9.8 g/dL (12.0-15.5) Hematocrit 33.8 % (36.0-47.0) Mean Corpuscular Volume 110 fL (79-100) Mean Corpuscular Hemoglobin 32 pg (25-35) Mean Corpuscular Hemoglobin Concent 29 g/dL (31-37) Red Cell Distribution Width 14.3 % (11.5-14.5) Platelet Count 155 x10^3/uL (140-400) Neutrophils (%) (Auto) 58 % (31-73) Lymphocytes (%) (Auto) 38 % (24-48) Monocytes (%) (Auto) 3 % (0-9) Eosinophils (%) (Auto) 0 % (0-3) Basophils (%) (Auto) 1 % (0-3) Neutrophils # (Auto) 10.6 x10^3/uL (1.8-7.7) Lymphocytes # (Auto) 7.1 x10^3/uL (1.0-4.8) Monocytes # (Auto) 0.6 x10^3/uL (0.0-1.1) Eosinophils # (Auto) 0.0 x10^3/uL (0.0-0.7) Basophils # (Auto) 0.1 x10^3/uL (0.0-0.2) Segmented Neutrophils % 42 % (35-66) Band Neutrophils % 15 % (0-9) Lymphocytes % 40 % (24-48) Monocytes % 1 % (0-10) Metamyelocytes % 2 % (0-0) Nucleated Red Blood Cells 1 Platelet Estimate Adequate (ADEQUATE) Macrocytosis Present Prothrombin Time 61.1 SEC (11.7-14.0) Prothromb Time International Ratio 6.8 (0.8-1.1) Activated Partial Thromboplast Time 145 SEC (24-38) Sodium Level 151 mmol/L (136-145) Potassium Level 4.7 mmol/L (3.5-5.1) Chloride Level 117 mmol/L (98-107) Carbon Dioxide Level 7 mmol/L (21-32) Anion Gap 27 (6-14) Blood Urea Nitrogen 11 mg/dL (7-20) Creatinine 1.4 mg/dL (0.6-1.0) Estimated GFR (Cockcroft-Gault) 44.2 BUN/Creatinine Ratio 8 (6-20) Glucose Level 222 mg/dL (70-99) Lactic Acid Level 24.8 mmol/L (0.4-2.0) Calcium Level 7.5 mg/dL (8.5-10.1) Magnesium Level 3.3 mg/dL (1.8-2.4) Total Bilirubin 0.3 mg/dL (0.2-1.0) Aspartate Amino Transf (AST/SGOT) 4484 U/L (15-37) Alanine Aminotransferase (ALT/SGPT) 6834 U/L (14-59) Alkaline Phosphatase 100 U/L (46-116) Troponin I Quantitative 0.261 ng/mL (0.000-0.055) Total Protein 4.5 g/dL (6.4-8.2) Albumin 2.0 g/dL (3.4-5.0) Albumin/Globulin Ratio 0.8 (1.0-1.7) Lipase 465 U/L (73-393) Ethyl Alcohol Level 75 mg/dL (0-10) Arterial Blood pH < 6.72 (7.35-7.45) Arterial Blood pCO2 at Patient Temp 34 mmHg (35-46) Arterial Blood HCO3 3 mmol/L (21-28) Arterial Blood Base Excess -36 mmol/L (-3-3) Test 08/20/20 10:44 SARS-CoV-2 Antigen (Rapid) Negative (NEGATIVE) Laboratory Tests Test 08/20/20 08:06 08/20/20 09:00 08/20/20 09:55 08/20/20 10:21 Glucose (Fingerstick) 188 mg/dL (70-99) O2 Saturation 87 % (92-99) 96 % (92-99) Arterial Blood pO2 at Patient Temp 123 mmHg (85-108) 183 mmHg (85-108) FiO2 100 vent 100 vent White Blood Count 18.4 x10^3/uL (4.0-11.0) Red Blood Count 3.06 x10^6/uL (3.50-5.40) Hemoglobin 9.8 g/dL (12.0-15.5) Hematocrit 33.8 % (36.0-47.0) Mean Corpuscular Volume 110 fL (79-100) Mean Corpuscular Hemoglobin 32 pg (25-35) Mean Corpuscular Hemoglobin Concent 29 g/dL (31-37) Red Cell Distribution Width 14.3 % (11.5-14.5) Platelet Count 155 x10^3/uL (140-400) Neutrophils (%) (Auto) 58 % (31-73) Lymphocytes (%) (Auto) 38 % (24-48) Monocytes (%) (Auto) 3 % (0-9) Eosinophils (%) (Auto) 0 % (0-3) Basophils (%) (Auto) 1 % (0-3) Neutrophils # (Auto) 10.6 x10^3/uL (1.8-7.7) Lymphocytes # (Auto) 7.1 x10^3/uL (1.0-4.8) Monocytes # (Auto) 0.6 x10^3/uL (0.0-1.1) Eosinophils # (Auto) 0.0 x10^3/uL (0.0-0.7) Basophils # (Auto) 0.1 x10^3/uL (0.0-0.2) Segmented Neutrophils % 42 % (35-66) Band Neutrophils % 15 % (0-9) Lymphocytes % 40 % (24-48) Monocytes % 1 % (0-10) Metamyelocytes % 2 % (0-0) Nucleated Red Blood Cells 1 Platelet Estimate Adequate (ADEQUATE) Macrocytosis Present Prothrombin Time 61.1 SEC (11.7-14.0) Prothromb Time International Ratio 6.8 (0.8-1.1) Activated Partial Thromboplast Time 145 SEC (24-38) Sodium Level 151 mmol/L (136-145) Potassium Level 4.7 mmol/L (3.5-5.1) Chloride Level 117 mmol/L (98-107) Carbon Dioxide Level 7 mmol/L (21-32) Anion Gap 27 (6-14) Blood Urea Nitrogen 11 mg/dL (7-20) Creatinine 1.4 mg/dL (0.6-1.0) Estimated GFR (Cockcroft-Gault) 44.2 BUN/Creatinine Ratio 8 (6-20) Glucose Level 222 mg/dL (70-99) Lactic Acid Level 24.8 mmol/L (0.4-2.0) Calcium Level 7.5 mg/dL (8.5-10.1) Magnesium Level 3.3 mg/dL (1.8-2.4) Total Bilirubin 0.3 mg/dL (0.2-1.0) Aspartate Amino Transf (AST/SGOT) 4484 U/L (15-37) Alanine Aminotransferase (ALT/SGPT) 6834 U/L (14-59) Alkaline Phosphatase 100 U/L (46-116) Troponin I Quantitative 0.261 ng/mL (0.000-0.055) Total Protein 4.5 g/dL (6.4-8.2) Albumin 2.0 g/dL (3.4-5.0) Albumin/Globulin Ratio 0.8 (1.0-1.7) Lipase 465 U/L (73-393) Ethyl Alcohol Level 75 mg/dL (0-10) Arterial Blood pH < 6.72 (7.35-7.45) Arterial Blood pCO2 at Patient Temp 34 mmHg (35-46) Arterial Blood HCO3 3 mmol/L (21-28) Arterial Blood Base Excess -36 mmol/L (-3-3) Test 08/20/20 10:44 SARS-CoV-2 Antigen (Rapid) Negative (NEGATIVE) Brief Hospital Course Ms. Meek is a 29 old female who presented with cardiopulmonary arrest, anoxic encephalopathy, metabolic acidosis. She was coded for roughly 2 hours in the ER with ROSC and sustainable rhythm. He was intubated and placed on 2 IV pressors. Orders were placed to have patient admitted to ICU. Patient's family arrived while she was still in the ER and unfortunately patient coded again but did not survive. Discharge Information Condition at Discharge: / Disposition/Orders: Justicifation of Admission Dx: Justifications for Admission: Justification of Admission Dx: Yes Comments: Cardiopulmonary arrest, metabolic acidosis, anoxic encephalopathy. SEEMA STEELE MD Aug 20, 2020 12:38
[2020-08-20 13:25] LABS: BARBITURATES NEG (NEG); BENZODIAZEPINES NEG (NEG); CANNABINOIDS NEG (NEG); COCAINE POS (NEG); METHADONE NEG (NEG); OPIATES NEG (NEG); PHENCYCLIDINE NEG (NEG)
[2020-08-20 13:26] LABS: U PREG PATIENT NEGATIVE (NEG)
[2020-08-20 13:26] LABS: AMPHETAMINE/METHAMPHETAMINE NEG (NEG)
--- NOTE | 2020-08-21 03:59 | EKG ---
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
--- NOTE | 2020-08-24 09:28 | EKG ---
[facility] [address] [place] [address] Test Date: 2020-08-20 Test Time: 08:23:38 Pat Name: FLORESITA PASCUAL Department: Room: Gender: F Sounding Device Operator: : 1990 Requested By: JASON GASTON Order Number: [id number] Reading MD: Measurements Intervals [place] Rate: 43 P: [place]: QRS: 122 QRSD: 130 T: -3 QT: 428 QTc: 366 Interpretive Statements IRREGULAR RHYTHM, NO P-WAVE FOUND ABNORMAL RIGHT AXIS DEVIATION NON SPECIFIC INTRAVENTRICULAR BLOCK CONSIDER RIGHT VENTRICULAR HYPERTROPHY ABNORMAL ECG RI6.02 No previous ECG available for comparison
== END 2020-08-20 12:21 | DRG 208 ==
LOC: ER 07:58 → ED HOLD 12:13
PROVIDERS: ADMIT Family Medicine; ATTEND Family Medicine
PROC: 5A1935Z Respiratory Ventilation, Less than 24 Consecutive Hours (ICD-10-PCS; principal; 2020-08-20)
PROC: 0BH17EZ Insertion of Endotracheal Airway into Trachea, Via Natural or Artificial Opening (ICD-10-PCS; 2020-08-20)
PROC: 5A12012 Performance of Cardiac Output, Single, Manual (ICD-10-PCS; 2020-08-20)
DX: J96.01 Acute respiratory failure with hypoxia (principal); G93.6 Cerebral edema; G92 Toxic encephalopathy; G93.1 Anoxic brain damage, not elsewhere classified; E87.2 Acidosis; J98.11 Atelectasis; R57.9 Shock, unspecified; N17.9 Acute kidney failure, unspecified; D68.9 Coagulation defect, unspecified; I47.2 Ventricular tachycardia; I46.9 Cardiac arrest, cause unspecified; Z20.822 Contact with and (suspected) exposure to COVID-19; F19.10 Other psychoactive substance abuse, uncomplicated
CPT/HCPCS: 31500; 36415; 36556; 36600; 51702; 70450; 71045; 71275; 80053; 80307; 81025; 82805; 82962; 83605; 83690; 83735; 84484; 85007; 85025; 85610; 85730; 87426; 92950; 93005; 94002; 99292; G0480; J0171; J0282; J0461; J1265; J3475; J3490; J7030; J7050; J7060; Q9967; U0003; 99291-25